=== PATIENT | female | born 1940 | race American Indian/Alaskan Native ===

== ENCOUNTER 2016-11-24 17:56 | Inpatient (IN) | payer MEDICARE ==
[2016-11-24] MEDS ORDERED: KETALAR ONE (18:00)
[2016-11-24] MEDS ORDERED: NACL 0.9% 1000 ML 1,000 ML IV ONE ×3 (18:00→22:03)
[2016-11-24] MEDS ORDERED: ZEMURON IV ONE (18:00)
[2016-11-24] MEDS ORDERED: NACL 0.9% 1000 ML 2,000 ML ONE (18:04)
[2016-11-24] MEDS ORDERED: LEVOPHED DRIP 4 MG/NS 250 ML 4 MG/250 ML BAG IV ONE (18:11)
[2016-11-24] MEDS ORDERED: SUBLIMAZE ONE (18:14)
[2016-11-24] MEDS ORDERED: VASELINE LIP THERAPY TP PRN (18:17)
[2016-11-24] MEDS ORDERED: ARTIFICIAL TEARS OPHTH OINT OU PRN (18:17)
[2016-11-24] MEDS: LEVOPHED DRIP 4 MG/NS 250 ML 4 MG/250 ML BAG IV SCH (18:20)
--- NOTE | 2016-11-24 18:24 | Emergency Department Report ---
ED CPR HPI - General Chief Complaint: Cardiac Arrest/CPR Stated Complaint: CARDIAC ARREST Time Seen by Provider: 11/24/16 18:13 Source: EMS - History of Present Illness Initial Comments: Pt is a 76 yr old female with a h/o multiple cancers who presents from the [place] for cardiac arrest. As per EMS she was seen last normal at 1725. Upon EMS arrival patient was asystolic, PEA, and then ROSC was achieved. Pt was given 2 rounds of epinephrine and a amparo tube was placed prior to hospital arrival. Upon arriving to the department patient had no neurological exam, vomit around her mouth, and then coded again at 1802 shortly upon arrival. Pt achieved ROSC with 2 more rounds of epinephrine, 1 Na Bicarb, and 1 calcium gluconate. - Related Data Home Medications Medication Instructions Recorded Confirmed Last Taken Albuterol Sulfate [Ventolin HFA] 2 puff IH Q6H PRN 11/18/16 11/24/16 Unknown Clotrimazole [Mycelex] 10 mg MM TID 11/18/16 11/24/16 Unknown Dicyclomine [Bentyl] 10 mg PO BID 11/18/16 11/24/16 Unknown Docusate Sodium [Colace CAP] 100 mg PO BID 11/18/16 11/24/16 Unknown Multivit-Min/Iron Fum/Folic AC 1 each PO DAILY 11/18/16 11/24/16 Unknown [Xhnfl-Nsauuua-Ehyhfhpt Tablet] Burton-3 Fatty Acids [Fish Oil] 500 mg PO DAILY 11/18/16 11/24/16 Unknown Phenol 1.4% [Chloraseptic] 1 spray MM PRN 11/18/16 11/24/16 Unknown Ranitidine HCl [Heartburn Relief] 150 mg PO BID 11/18/16 11/24/16 Unknown Simethicone [Bicarsim] 80 mg PO BID 11/18/16 11/24/16 Unknown amLODIPine [Norvasc] 5 mg PO DAILY 11/18/16 11/24/16 Unknown Azelastine HCl [Astepro] 2 sprays INNOSTRIL Q12H PRN 11/24/16 11/24/16 Unknown HYDROcodone/APAP 10-325 [[place] 1 tab PO Q6H PRN 11/24/16 11/24/16 Unknown 10-325 mg TAB] Oxymetazoline 0.05% [Afrin] 2 sprays INTRANASAL TID PRN 11/24/16 11/24/16 Unknown guaiFENesin DM [Robitussin Dm] 10 ml PO Q6H PRN 11/24/16 11/24/16 Unknown levETIRAcetam [Keppra TAB] 1,000 mg PO QHS 11/24/16 11/24/16 Unknown levETIRAcetam [Keppra TAB] 500 mg PO QDAY 11/24/16 11/24/16 Unknown Allergies Allergy/AdvReac Type Severity Reaction Status Date / Time acetaminophen Allergy Itching Unverified 01/24/14 15:41 aspirin Allergy Itching Unverified 01/24/14 15:41 atorvastatin Allergy Itching Unverified 01/24/14 15:41 dipyridamole Allergy Itching Unverified 01/24/14 15:41 gabapentin Allergy Itching Unverified 01/24/14 15:41 levalbuterol [Levalbuterol] Allergy Unknown Unverified 01/24/14 15:41 levofloxacin Allergy Itching Unverified 01/24/14 15:41 lovastatin Allergy Itching Unverified 01/24/14 15:41 naproxen Allergy Itching Unverified 01/24/14 15:41 propoxyphene Allergy Itching Unverified 01/24/14 15:41 Sulfa (Sulfonamide Allergy Itching Unverified 01/24/14 15:41 Antibiotics) ED Review of Systems ROS: Stated complaint: CARDIAC ARREST Other details as noted in HPI Comment: Unobtainable due to pts medical conditions ED Past Medical Hx - Past Medical History Previous Medical History?: Yes Hx of Cancer: Yes Hx COPD: Yes Additional medical history: Oral Candidiasis - Social History Smoking Status: Never Smoker - Medications Home Medications: Home Medications Medication Instructions Recorded Confirmed Last Taken Type Albuterol Sulfate [Ventolin HFA] 2 puff IH Q6H PRN 11/18/16 11/24/16 Unknown History Clotrimazole [Mycelex] 10 mg MM TID 11/18/16 11/24/16 Unknown History Dicyclomine [Bentyl] 10 mg PO BID 11/18/16 11/24/16 Unknown History Docusate Sodium [Colace CAP] 100 mg PO BID 11/18/16 11/24/16 Unknown History Multivit-Min/Iron Fum/Folic AC 1 each PO DAILY 11/18/16 11/24/16 Unknown History [Yrhhl-Gpsqitk-Adjfccmc Tablet] [place]-3 Fatty Acids [Fish Oil] 500 mg PO DAILY 11/18/16 11/24/16 Unknown History Phenol 1.4% [Chloraseptic] 1 spray MM PRN 11/18/16 11/24/16 Unknown History Ranitidine HCl [Heartburn Relief] 150 mg PO BID 11/18/16 11/24/16 Unknown History Simethicone [Bicarsim] 80 mg PO BID 11/18/16 11/24/16 Unknown History amLODIPine [Norvasc] 5 mg PO DAILY 11/18/16 11/24/16 Unknown History Azelastine HCl [Astepro] 2 sprays INNOSTRIL Q12H PRN 11/24/16 11/24/16 Unknown History HYDROcodone/APAP 10-325 [[place] 1 tab PO Q6H PRN 11/24/16 11/24/16 Unknown History 10-325 mg TAB] Oxymetazoline 0.05% [Afrin] 2 sprays INTRANASAL TID PRN 11/24/16 11/24/16 Unknown History guaiFENesin DM [Robitussin Dm] 10 ml PO Q6H PRN 11/24/16 11/24/16 Unknown History levETIRAcetam [Keppra TAB] 1,000 mg PO QHS 11/24/16 11/24/16 Unknown History levETIRAcetam [Keppra TAB] 500 mg PO QDAY 11/24/16 11/24/16 Unknown History ED Physical Exam - General Limitations: Altered Mental Status, Other (Cardiac arrest) General appearance: obtunded - Head Head exam: Present: atraumatic, normocephalic, normal inspection - Eye Eye exam: Present: other (Fixed and dilated, however likely surgical pupils). Absent: normal appearance, PERRL, EOMI Pupils: Absent: normal accommodation - ENT ENT exam: Present: mucous membranes moist, TM's normal bilaterally, other ( vomit in ororpharynx) - Neck Neck exam: Present: normal inspection - Respiratory Respiratory exam: Present: rhonchi, other (Intubated) - Cardiovascular Cardiovascular Exam: Present: other (cardiac arrest) - GI/Abdominal GI/Abdominal exam: Present: soft. Absent: distended - Extremities Exam Extremities exam: Present: other (mottled, cool). Absent: pedal edema, joint swelling - Neurological Exam Neurological exam: Present: other (Cardiac arrest, no neurological signs of life ) - Skin Skin exam: Present: dry, intact, pallor ED Course Vital Signs 11/24/16 11/24/16 11/24/16 17:54 17:55 18:00 Pulse Rate Respiratory Rate Blood Pressure 73/36 73/36 O2 Sat by Pulse 100 100 81 L Oximetry 11/24/16 11/24/16 11/24/16 18:06 18:10 18:15 Pulse Rate 119 H 94 H 106 H Respiratory 17 16 16 Rate Blood Pressure 125/93 156/68 84/42 O2 Sat by Pulse 100 100 100 Oximetry 11/24/16 11/24/16 11/24/16 18:30 18:45 19:00 Pulse Rate 112 H 111 H Respiratory 16 17 Rate Blood Pressure 89/37 91/42 91/42 O2 Sat by Pulse 92 96 Oximetry 11/24/16 11/24/16 11/24/16 19:18 19:30 19:45 Pulse Rate 121 H 119 H 114 H Respiratory 16 18 18 Rate Blood Pressure 84/42 95/34 94/33 O2 Sat by Pulse 96 95 93 Oximetry 11/24/16 11/24/16 11/24/16 19:48 19:52 20:00 Pulse Rate 114 H 116 H Respiratory 18 24 Rate Blood Pressure 94/33 96/41 O2 Sat by Pulse 93 95 92 Oximetry 11/24/16 11/24/16 11/24/16 20:16 20:30 20:45 Pulse Rate 118 H 117 H 115 H Respiratory 25 H 24 24 Rate Blood Pressure 99/48 111/51 106/45 O2 Sat by Pulse 99 99 98 Oximetry 11/24/16 11/24/16 11/24/16 21:00 21:16 21:30 Pulse Rate 120 H 121 H 123 H Respiratory 20 20 20 Rate Blood Pressure 87/53 89/38 75/36 O2 Sat by Pulse 99 99 99 Oximetry 11/24/16 11/24/16 11/24/16 21:45 22:00 22:15 Pulse Rate 123 H 120 H 117 H Respiratory 21 21 20 Rate Blood Pressure 77/41 85/49 90/51 O2 Sat by Pulse 98 100 100 Oximetry 11/24/16 11/24/16 11/24/16 22:30 22:45 23:00 Pulse Rate 117 H 126 H 126 H Respiratory 24 25 H 24 Rate Blood Pressure 90/51 95/50 95/59 O2 Sat by Pulse 100 100 100 Oximetry 11/24/16 11/24/16 11/24/16 23:15 23:23 23:30 Pulse Rate 127 H 118 H 120 H Respiratory 23 15 Rate Blood Pressure 102/55 102/55 97/48 O2 Sat by Pulse 100 99 99 Oximetry 11/24/16 11/25/16 11/25/16 23:45 00:00 00:15 Pulse Rate 119 H 120 H 120 H Respiratory 18 11 L 10 L Rate Blood Pressure 102/40 92/37 81/45 O2 Sat by Pulse 98 100 100 Oximetry 11/25/16 11/25/16 11/25/16 00:30 00:32 00:46 Pulse Rate 117 H 118 H 125 H Respiratory 10 L 10 L 10 L Rate Blood Pressure 102/40 89/46 118/81 O2 Sat by Pulse 100 100 100 Oximetry 11/25/16 11/25/16 11/25/16 01:00 01:16 01:30 Pulse Rate 127 H 129 H 124 H Respiratory 11 L 11 L 11 L Rate Blood Pressure 87/45 89/50 103/46 O2 Sat by Pulse 100 100 100 Oximetry 11/25/16 11/25/16 11/25/16 01:46 02:00 02:15 Pulse Rate 126 H 125 H 123 H Respiratory 10 L 11 L 11 L Rate Blood Pressure 111/42 111/42 103/46 O2 Sat by Pulse 100 100 100 Oximetry 11/25/16 11/25/16 11/25/16 02:30 02:46 03:00 Pulse Rate 123 H 112 H 112 H Respiratory 11 L 11 L 11 L Rate Blood Pressure 100/36 101/39 102/39 O2 Sat by Pulse 100 100 100 Oximetry 11/25/16 11/25/16 11/25/16 03:16 03:30 03:46 Pulse Rate 111 H 109 H 110 H Respiratory 12 15 12 Rate Blood Pressure 99/62 95/35 107/29 O2 Sat by Pulse 100 100 100 Oximetry 11/25/16 11/25/16 11/25/16 04:00 04:16 04:30 Pulse Rate 109 H 110 H 111 H Respiratory 13 13 12 Rate Blood Pressure 99/62 92/47 92/47 O2 Sat by Pulse 100 100 100 Oximetry 11/25/16 11/25/16 11/25/16 04:46 05:00 05:16 Pulse Rate 111 H 111 H 114 H Respiratory 12 14 14 Rate Blood Pressure 100/40 116/35 116/35 O2 Sat by Pulse 100 100 100 Oximetry 11/25/16 11/25/16 11/25/16 05:30 05:46 06:00 Pulse Rate 115 H 114 H 115 H Respiratory 14 13 14 Rate Blood Pressure 100/40 105/43 105/43 O2 Sat by Pulse 100 100 100 Oximetry 11/25/16 11/25/16 11/25/16 06:36 06:46 07:00 Pulse Rate 120 H 116 H 116 H Respiratory 16 14 14 Rate Blood Pressure 106/37 113/34 O2 Sat by Pulse 100 100 100 Oximetry 11/25/16 11/25/16 11/25/16 07:16 07:30 07:46 Pulse Rate 115 H 115 H 116 H Respiratory 14 16 15 Rate Blood Pressure 106/39 106/39 92/43 O2 Sat by Pulse 100 100 100 Oximetry 11/25/16 11/25/16 11/25/16 08:00 08:15 08:29 Pulse Rate 115 H 116 H 116 H Respiratory 15 15 Rate Blood Pressure 97/42 108/42 108/42 O2 Sat by Pulse 100 100 100 Oximetry 11/25/16 11/25/16 11/25/16 08:30 08:45 09:00 Pulse Rate 115 H 116 H 116 H Respiratory 15 16 16 Rate Blood Pressure 108/42 91/37 101/40 O2 Sat by Pulse 100 100 100 Oximetry 11/25/16 11/25/16 11/25/16 09:15 09:30 09:45 Pulse Rate 102 H 102 H 98 H Respiratory 16 18 19 Rate Blood Pressure 106/34 92/35 57/25 O2 Sat by Pulse 100 100 100 Oximetry 11/25/16 11/25/16 11/25/16 10:00 10:16 10:30 Pulse Rate 94 H 80 72 Respiratory 26 H 20 26 H Rate Blood Pressure 62/32 66/27 66/27 O2 Sat by Pulse 100 100 Oximetry 06/06/17 06/06/17 10:46 11:00 Pulse Rate 33 L Respiratory 24 23 Rate Blood Pressure 45/13 45/13 O2 Sat by Pulse Oximetry - Central Line Placement Right IJ Consent Obtained: emergent situation Time Out Performed: Yes Patient Placed on Monitor/Pulse Ox: Yes MD Prep: mask, gown, gloves Central Line Prep: Chlorhexidine scrub, sterile drapes applied Ultrasound Used for Placement: Yes Central Line Lumen Inserted: triple Bloods Obtained for Lab: No (labs already done) Central Line Position: good blood return, all ports aspirated, flus, sutured in place with 2-0 Dressing Applied: Tegaderm Patient Tolerated Procedure: well Complications: none ED Medical Decision Making - Lab Data Result diagrams: 11/24/16 19:39 11/24/16 19:39 - EKG Data -: EKG Interpreted by Me - EKG Data 11/24/16 18:24 Sinus Tachy at 104 bpm, QTc: 486ms, normal axis, no LVH, incomplete LBBB, (-) sgarbossa, TWI in the inferior-lateral leads, no STEMI - Radiology Data Radiology results: report reviewed, image reviewed CXR: ETT in satsifactory position as visualized by me KUB: PEG tube in stomach as visualized by me and reviewed report CXR s/p line placement: TLC in satisfactory position as visualized by me, ETT remains in satisfactory position Critical Care Time: Yes (Cardiac arrest) Critical care time in (mins) excluding proc time.: 35 Critical care attestation.: If time is entered above; I have spent that time in minutes in the direct care of this critically ill patient, excluding procedure time. Pt arrested shortly after arrival at 1802 Pt given epi x 2 Na bicarb x 1 Ca gluconate x 1 intubated with glide x 1 attempt 7.5 ETT 22cm at the lip Fentanyl infusion for sedation and pain control, propofol was held due to low BP and low MAP Pt started on levophed for SBP 90 and to maintain MAP at 65 1L NS IVF given FSG within normal limits Pt had no neurological signs of life ED Disposition Clinical Impression: Cardiac arrest Disposition: OP ADMIT IP TO THIS HOSP Is pt being admited?: Yes Condition: Critical
[2016-11-24] MEDS ORDERED: CALCIUM CHLORIDE IV ONE (18:50)
[2016-11-24] MEDS ORDERED: ADRENALIN ONE (18:50)
[2016-11-24] MEDS ORDERED: SODIUM BICARBONATE IV ONE (18:50)
--- NOTE | 2016-11-24 18:51 | Admit Criteria Form ---
Admission Criteria Documentation: INTENSIVE CARE UNIT ADMISSION Intensive Care Admission Guidelines ( Place 'X' for any and all applicable criteria): Admission to ICU may be indicated when need is demonstrated by ANY ONE of the following (1)(2)(3)(4)(5)(6)(7)(8)(9) : [X ]I. Vital sign abnormalities, including ANY ONE of the following: [X ]a) Systolic arterial pressure less than 90 mm Hg, or 20 mm Hg below the patient's usual pressure [ ]b) Diastolic arterial pressure greater than 120 mm Hg [ ]c) Mean arterial pressure less than 70 mm Hg [A] [ ]d) Pulse less than 40 or greater than 140 beats per minute (in adult) [ ]e) Respiratory rate greater than 35 or less than 8 breaths per minute [ ]II. Laboratory findings (new), including ANY ONE of the following (10): [ ]a) Saturation of arterial oxygen less than 88% or partial pressure of oxygen less than 60 mm Hg (8.0 kPa) despite oxygen supplementation [ ]b) Rising partial pressure of carbon dioxide with respiratory acidosis [ ]c) pH less than 7.2 or greater than 7.65 [ ]d) Serum glucose greater than 800 mg/dL (44.4 mmol/L) [ ]e) Serum sodium less than 110 mEq/L (mmol/L) or greater than 160 mEq/L (mmol/L) [ ]f) Serum potassium less than 2 mEq/L (mmol/L) or greater than 7 mEq /L (mmol/L) [ ]g) Serum calcium greater than 15 mg/dL (3.75 mmol/L) [ ]h) Serum phosphorus less than 1 mg/dL (0.32 mmol/L) [ ]i) Toxic drug level or poisoning causing or likely to cause neurologic or Hemodynamic instability [ ]j) Less severe laboratory abnormalities contributing to ANY ONE of the following: [ ]i) Seizure [ ]ii) Altered mental status [ ]iii) Muscle weakness [ ]iv) Arrhythmias [ ]v) Hemodynamic instability [ ]vi) Other significant clinical manifestations [ ]III. Electrocardiogram (or cardiac monitoring) findings, including ANY ONE of the following: [ ]a) Inherently unstable or life-threatening arrhythmia (eg, sustained ventricular tachycardia, ventricular fibrillation, asystole) [ ]b) Arrhythmia causing severe hypotension (eg, bradycardia, tachycardia) [ ]c) Complete heart block causing severe hypotension [ ]d) Other findings indicative of a need for intensive care (eg , SC) [X ]IV.Physical findings, including ANY ONE of the following: [ ]a) Threatened airway [ ]b) Sudden altered mental status [ ]c) Repeated or prolonged seizures [ ]d) Coma [ ]e) New-onset anuria (urine output <0.1 mL/kg/hr over 4 h) [ ]f) Cyanosis (new) [ ]g) Cardiac tamponade [X]h) Status post respiratory or cardiac arrest [ ]i) Severe jones (eg, partial thickness jones over more than 10% of body surface, third-degree jones) [ ]j) Findings consistent with abdominal emergency (eg, peritoneal signs) [ ]V.Imaging findings, such as dissecting aneurysm or ruptured viscus [ ].Specific intervention or monitoring needed, as indicated by ANY ONE of the following: [ ]a) New need for assisted ventilation, invasive or noninvasive(11) [ ]b) New need for intubation (eg, to protect airway) [ ]c) New tracheostomy (less than 48 hours old) [ ]d) Hourly vital signs or neurologic checks [ ]e) Pulmonary artery line monitoring needed [ ]f) Continuous arterial line monitoring needed [ ]g) Continuous IV vasoactive drugs [ ]h) Continuous IV antiarrhythmics [ ]i) Large volume IV fluid resuscitation (eg, greater than 6 L per day ) [ ]j) Large or rapid transfusion needs (eg, more than 6 units within 24 hours) [ ]k) High-risk IV treatment, such as bolus IV medicatns or mannitol infusion [ ]l) Acute cardiac pacing [ ]m) Intra-aortic balloon pump [ ]n) Ventricular assist device [ ]o) Cardioversion [ ]p) Pericardiocentesis [ ]q) Hemodialysis in unstable patient [ ]r) Continuous renal replacement therapy (eg, continuous veno-venous hemofiltration) [ ]s) Peritoneal dialysis initiation [ ]t) Emergency bronchoscopic therapy (eg, for hemoptysis) [ ]u) Emergency endoscopic therapy for bleeding [ ]v) Balloon tamponade for variceal bleeding [ ]w) Intracranial pressure monitoring or tissue oxygen monitoring [ ]x) Ventriculostomy monitoring [ ]y) Treatment of ongoing seizures [ ]z) Induced hypothermia or coma [ ]aa) Ongoing frequent testing and treatment for acute conditions, including ANY ONE of the following: [ ]i) Correction of severe metabolic acidosis/ alkalosis [ ]ii). Severe fluid overload [ ]iii) Cerebral edema [ ]iv) Monitoring or suctioning for respiratory insufficiency or acidosis [ ]v) Monitoring for active bleeding [ ]bb) Rapid desensitization for high-risk hypersensitivity reaction to required medication (eg, penicillin)(12) [ ]cc) Other need for treatment or monitoring not available outside the ICU [ ]VII.Cardiology diagnoses or procedures, including ANY ONE of the following (13)(14)(15)(16)(17): [ ]a) Chest pain with ANY ONE of the following: [ ]i) Hemodynamic instability [ ]ii) Suspicion of diagnoses needing ICU care (eg, aortic dissection) [ ]iii) New unstable or symptomatic arrhythmia or ECG finding (eg, ventricular tachycardia, ventricular fibrillation, advanced heart block) [ ]iv) Syncope or near-syncope [ ]v) SBP less than 100 mm Hg [ ]vi) Pulmonary edema thought to be due to ischemia [ ]vii) New or worsening mitral regurgitation murmur, S3 , or rales [ ]b) Acute SC with complications as indicated by ANY ONE of the following: [ ]i) Persistent chest pain [ ]ii) Hemodynamic instability [ ]iii) New unstable or symptomatic arrhythmia or ECG finding (eg, ventricular tachycardia, ventricular fibrillation, advanced heart block) [ ]iv) Syncope or near-syncope [ ]v) Pulmonary edema thought to be due to ischemia [ ]vi) New or worsening mitral regurgitation murmur, S3 , or rales [ ]vii) New-onset bundle branch block [ ]viii) Hemorrhagic complication (eg, intracranial or access site bleed following thrombolysis) [ ]c) Cardiac arrhythmia or conduction defect with Hemodynamic instability [ ]d) Complication of cardiac ablation, including ANY ONE of the following(18): [ ]i) Pericardial tamponade [ ]ii) Hemodynamic instability [ ]iii) Thromboembolic stroke [ ]iv) Aortic valve injury [ ]v) Vascular injuries [ ]vi) Esophageal perforation [ ]vii) Severe arrhythmia [ ]viii) Air embolism [ ]ix) Other severe complication [ ]e) Cardiogenic shock [ ]f) Hypertensive emergency, with need for ANY ONE of the following(19): [ ]i) IV antihypertensive therapy [ ]ii) Invasive hemodynamic monitoring (eg, arterial line) [ ]g) Pericardial tamponade [ ]h) Severe heart failure, with ANY ONE of the following(15): [ ]i) Respiratory failure [ ]ii) Cardiogenic shock [ ]iii) Severe arrhythmias [ ]iv) Evidence of cardiac ischemia [ ]i Myocarditis, with ANY ONE of the following [ ]i) Hemodynamic instability [ ]ii) Respiratory failure [ ]iii) Severe arrhythmias [ ]iv) Need for cardiac assist device (eg, left ventricular assist device or extracorporeal membrane oxygenator) [ ]j) Status post cardiac arrest(20) [ ]VIII. Cardiovascular Surgery diagnoses or procedures, including ANY ONE of the following.(21)(22): [ ]a) Acute aortic dissection [ ]b) Aortic surgery for ANY ONE of the following: [ ]i) Thoracic aneurysm [ ]ii) Abdominal aneurysm with ANY ONE of the following(23): [ ]1) Emergency repair [ ]2) Severe cardiopulmonary disease [ ]3) Dialysis-dependent renal failure [ ]4) Need for IV blood pressure control [ ]5) Need for ongoing ventilatory support [ ]6) Perioperative complications, including ANY ONE of the following: [ ]A. Sustained Hemodynamic instability [ ]B. Cardiac ischemia or arrhythmia [ ]C. Hypothermia (less than 35 degrees C (95 degrees F)) [ ]D. Blood transfusion greater than 3 L [ ]iii) Aortic coarctation operative excision or repair [ ]iv) Aortofemoral or aortoiliac bypass with ANY ONE of the following: [ ]1) Continued intubation [ ]2) Hemodynamic instability [ ]3) Need for IV blood pressure control [ ]4) Severe cardiopulmonary disease [ ]c) Cardiac surgery [ ]d) Carotid endarterectomy or stent placement with ANY ONE of the following: [ ]i) Blood pressure <100/60 mm Hg or >160/90 mm Hg despite 4 h of postanesthetic management [ ]ii) New or progressive neurologic defect [ ]iii) Chest pain [ ]iv) Continued intubation [ ]v) Heart failure [ ]vi) Airway compromise by hematoma or vocal cord paralysis [ ]vi) Need for IV blood pressure control [ ]e) Heart transplant [ ]f) Infrainguinal peripheral vascular surgery with ANY ONE of the following: [ ]i) Hemodynamic instability [ ]ii) Acute complications such as persistent chest pain or respiratory distress [ ]iii) Requirement for IV antiarrhythmic or vasoactive agent [ ]iv) Requirement for pulmonary artery catheter [ ]v) Severe hypertension despite 6 hours of recovery room management [ ]g) Complications of any surgery requiring ICU intervention as indicated by ANY ONE of the following(24): [ ]i) Hemodynamic instability [ ]ii) Myocardial infarction with complications (eg, severe arrhythmia, hypotension) [ ]iii) Excessive bleeding or severe coagulopathy [ ]iv) Respiratory failure [ ]v) Renal failure [ ]vi) Airway instability or obstruction [ ]vii) Neurologic deterioration [ ]viii) Infection with likelihood of sepsis syndrome or significant fluid shifts [ ]IX.Endocrinology diagnoses or procedures, including ANY ONE of the following(25)(26): [ ]a) Adrenal crisis with Hemodynamic instability(27) [ ]b) Pheochromocytoma with ANY ONE of the following(28): [ ]i) Hypertensive crisis [ ]ii) Postoperative Hemodynamic instability [ ]iii) Need for IV vasoactive therapy [ ]iv) Need for invasive arterial or central venous pressure monitoring [ ]v) Organ ischemia [ ]c) Diabetic hyperosmolar state with obtundation or coma [ ]d) Diabetic ketoacidosis with ANY ONE of the following: [ ]i) Serum pH less than 7.10 or bicarbonate level less than 10 mEq/L (mmol/L) [ ]ii) Rapidly changing electrolytes [ ]iii) Hypotension [ ]iv) Requirement for large-volume fluid resuscitation [ ]v) Respiratory insufficiency [ ]vi) Life-threatening cardiac dysrhythmias [ ]vii) Obtundation [ ]viii) Severe precipitating condition such as sepsis, stroke, or acute SC [ ]e) Severe hypoglycemia requiring continuous glucose infusion with frequent adjustment or glucagon infusion [ ]f) Hyperthyroidism associated with thyroid storm (also known as thyrotoxic crisis)(29) [ ]g) Myxedema with life-threatening neurologic, cardiovascular, electrolyte, or renal dysfunction(29) [ ]h) Diabetes insipidus that cannot be controlled with routine medication (30) [ ]X. Gastroenterology diagnoses or procedures, including ANY ONE of the following: [ ]a) Esophageal perforation(31) [ ]b) Severe caustic esophageal injury(31) [ ]c) Liver disease complications with ANY ONE of the following(32): [ ]i) Severe hepatic encephalopathy (eg, stage 3 (somnolent) or higher) [ ]ii) Type 1 hepatorenal syndrome [ ]iii) Other cirrhosis-associated causes of acute renal failure ( eg, severe hypovolemia, acute tubular necrosis, abdominal compartment syndrome) [ ]iv) Hemodynamic instability [ ]v) Respiratory insufficiency due to severe ascites [ ]vi) Sepsis due to spontaneous bacterial peritonitis [ ]d) Fulminant hepatic failure when aggressive intervention or transplant is anticipated (32) [ ]e) Gastrointestinal hemorrhage (upper or lower) with ANY ONE of the following(33)(34): [ ]i) Active ongoing bleeding [ ]ii) Transfusion requirement greater than 2 units of packed red cells [ ]iii) Bleeding ulcer or nonbleeding visible vessel seen on endoscopy [ ]iv) Bleeding ulcer, visible blood vessel, bleeding (or recently bleeding) esophageal varices seen on endoscopy [ ]v) Hypotension [ ]vi) Syncope [ ]vii) Coagulopathy [ ]viii) Hepatic cirrhosis [ ]ix) Abnormal mental status [ ]x) Unstable comorbid condition or end organ dysfunction [ ]xi) Ischemia due to poor perfusion [ ]xii) Need for hemodynamic monitoring (eg, for patients with heart failure or valvular disease) [ ]f) Severe pancreatitis indicated by ANY ONE of the following (35)(36): [ ]i) Requirement for aggressive fluid resuscitation [ ]ii) Life-threatening electrolyte abnormality [ ]iii) SBP less than 90 mm Hg [ ]iv) Persistent tachycardia greater than 120 beats per minute [ ]v) Patients at high risk of rapid deterioration, including ANY ONE of the following: [ ]1) Calculated [place] II score greater than 8 [ ]2) Age older than 55 years [ ]3) BMI greater than 30 [ ]4) Greater than 30% pancreatic necrosis on CT scan [ ]5) Admission hematocrit greater than 47% (0.47) [ ]vi) Organ failure as indicated by ANY ONE of the following: [ ]1) Serum creatinine greater than 1.9 mg/dL (168 micromoles/L) [ ]2) Requirement for mechanical ventilation [ ]3) Urine output less than 50 mL/hour [ ]4) Arterial partial pressure of oxygen less than 60 mm Hg (8.0 kPa) despite supplemental oxygen [ ]5) PiO2/FiO2 ratio less than 300 [ ]vii) Expanding pseudocyst [ ]viii) Infected pancreas [ ]ix) Pleural effusion [ ]x) Encephalopathy [ ]xi) Severe comorbidities [ ]XI. General Surgery diagnoses or procedures, including ANY ONE of the following (9)(24)(37): [ ]a) Acute abdominal catastrophe (eg, ischemic bowel, perforated viscus, abdominal compartment syndrome) [ ]b) Complications of any surgery requiring ICU intervention as indicated by ANY ONE of the following: [ ]i) Hemodynamic instability [ ]ii) SC with complications (eg, severe arrhythmia, hypotension) [ ]iii) Excessive bleeding or severe coagulopathy [ ]iv) Respiratory failure [ ]v) Renal failure [ ]vi) Airway instability or obstruction [ ]vii) Neurologic deterioration [ ]viii) Infection with likelihood of sepsis syndrome or significant fluid shifts [ ]c) Multiple trauma with complicating features as indicated by ANY ONE of the following(38): [ ]i) Impending acute respiratory failure due to lung contusion, unstable chest wall, aspiration, or hemorrhage [ ]ii) Facial or neck injury threatening airway patency [ ]iii) Cardiac contusion [ ]iv) Pericardial effusion [ ]v) Bronchial tear [ ]vi) Hemodynamic instability [ ]vii) Rhabdomyolisis requiring large volume IV fluid resuscitation [ ]viii)Other significant complicating feature [ ]d) Organ transplant(39)(40) [ ]e) Esophagectomy(31) [ ]f) Whipple procedure [ ]g) Preoperative or postoperative patients requiring ICU intervention, such as hemodynamic optimization, pulmonary artery monitoring, mechanical ventilation, or extensive nursing care [ ]h) Obesity surgery patients with ANY ONE of the following(41): [ ]i) ICU management needs for comorbid conditions, such as sleep apnea or airway management needs [ ]ii) Failed postoperative extubation [ ]iii) Intraoperative complications [ ]XII. Nephrology diagnoses or procedures, including acute, or acute on chronic renal insufficiency with ANY ONE of the following(44)(45): [ ]a) Life-threatening electrolyte or acid-base disorder [ ]b) Acute pulmonary edema [ ]c) Hypotension or significant volume depletion [ ]d) Hypertensive emergency [ ]e) Underlying critical illness contributing to renal failure (eg, septic shock, hepatorenal syndrome) [ ]f) Need for continuous renal replacement therapy [ ]XIII. Neurology diagnoses or procedures, including ANY ONE of the following (46)(47) [B] : [ ]a) Intracranial hypertension requiring ANY ONE of the following(49 ): [ ]i) Induced barbiturate coma [ ]ii) Pharmacologic paralysis or deep sedation and mechanical ventilation [ ]iii) Intracranial pressure or cerebral perfusion pressure monitoring [ ]iv) IV mannitol or hypertonic saline [ ]v) Frequent serum osmolality measurements [ ]b) Seizures with ANY ONE of the following(50): [ ]i) Status epilepticus [ ]ii) Airway compromise requiring or likely to require mechanical ventilation [ ]iii) Severe electrolyte abnormalities causing seizures [ ]c) Progressive acute neurologic dysfunction requiring or likely to require ANY ONE of the following: [ ]i) Mechanical ventilation [ ]ii) Intracranial pressure or cerebral perfusion pressure monitoring [ ]d) Meningitis with obtundation or respiratory insufficiency [C])(51 ) [ ]e) Stroke with ANY ONE of the following(52)(53): [ ]i) Need for observation after thrombolysis [ ]ii) Altered mental status [ ]iii) Need for mechanical ventilation [ ]iv) Elevated intracranial pressure [ ]v) Hypertensive emergency [ ]vi) High risk of progressive infarction or deterioration based on CT scan or MRI [ ]vii) Hemorrhage [ ]f) Acute coma [ ]g) Acute spontaneous intracranial hemorrhage(53)(54) [ ]h) Drug ingestion with ANY ONE of the following(56)(57): [ ]i) Hemodynamic instability [ ]ii) Respiratory depression (partial pressure of carbon dioxide >45 mm Hg (6.0 kPa), new) [ ]iii) Patient requires or is likely to require mechanical ventilation. [ ]iv) Arrhythmias [ ]v) Seizures [ ]vi) Altered mental status (Redmond coma scale score less than 12, new) [ ]vii) Significant risk for acute deterioration (eg, toxic level of hypotension or arrhythmia-producing drug) [ ]viii) Drug-induced hypothermia or hyperthermia [ ]ix) Increasing metabolic acidosis [ ]x) Severe hypoglycemia requiring glucose infusion with frequent adjustment or glucagon administration [ ]xi) Ongoing antidote administration (eg, continuous naloxone infusion, organophosphate toxicity treatment) [ ]xii) Emergency intervention need (eg, dialysis, hemoperfusion, restraints) [ ]i) Brain with preparation for organ donation [ ]j) Traumatic brain injury with ANY ONE of the following(55): [ ]i) Altered mental status (eg, new onset Mikey coma scale score less than 10) [ ]ii) Cerebral edema [ ]iii) Cerebral hemorrhage [ ]iv) Increased intracranial pressure [ ]XIV. Neurosurgery diagnoses or procedures, including ANY ONE of the following(49)(58)(59): [ ]a) Emergency craniotomy for tumor, hematoma, or trauma [ ]b) Elective craniotomy for posterior fossa tumor [ ]c) Elective craniotomy (supratentorial) for tumor with ANY ONE of the following: [ ]i) Postoperative neurologic deficit or impaired consciousness 6 hours after completion of procedure [ ]ii) SBP less than 110 mm Hg or greater than 180 mm Hg despite therapy [ ]iii) Extensive operative blood loss [ ]iv) High anesthesia risk (eg, [place] [employer] score greater than 3 [ ]d) Craniotomy for aneurysm with ANY ONE of the following: [ ]i) Postoperative neurologic deficit or impaired consciousness 6 hours after completion of procedure [ ]ii) Preoperative Lim-Mills grade 3 or higher [ ]iii) SBP less than 110 mm Hg or greater than 180 mm Hg despite therapy [ ]iv) Intracranial pressure monitoring [ ]e) Acute spinal cord injury [ ]f) Subarachnoid hemorrhage [ ]g) Traumatic brain injury with ANY ONE of the following: [ ]i) Acute mental status change (Mikey coma scale score less than 10) [ ]ii) CT scan showing cerebral edema or hemorrhage [ ]iii) Intracranial pressure monitoring [ ]h) Complications of any surgery requiring ICU intervention as indicated by ANY ONE of the following(60): [ ]i) Hemodynamic instability [ ]ii) SC with complications (eg, severe arrhythmia, hypotension) [ ]iii) Excessive bleeding or severe coagulopathy [ ]iv) Respiratory failure [ ] v) Renal failure [ ]vi) Airway instability or obstruction [ ]vii) Neurologic deterioration [ ]viii) Infection with likelihood of sepsis syndrome or significant fluid shifts [ ]i) Preoperative or postoperative patients requiring ICU intervention, such as hemodynamic optimization, pulmonary artery monitoring, mechanical ventilation, or extensive nursing care [ ]XV.Obstetrics and Gynecology diagnoses or procedures, including ANY ONE of the ffg. (61)(62)(63): [ ]a) Severe peripartum condition as indicated by ANY ONE of the following: [ ]i) Eclampsia [ ]ii) Hypertensive emergency [ ]iii) HELLP syndrome (hemolysis, elevated liver enzymes, and low platelet count) [ ]iv) Pulmonary edema [ ]v) Respiratory failure [ ]vi) Pulmonary embolism [ ]vii) Anaphylactoid syndrome of (amniotic fluid embolus) [ ]viii) Ovarian hyperstimulation syndrome [D] [ ]ix) Acute fatty liver of (hepatic failure) [ ]x) Complications such as placental abruption or severe hemorrhage [ ]xi) Sepsis (eg, puerperal sepsis, chorioamnionitis, septic ) [ ]xii) cardiomyopathy with severe congestive heart failure (eg, respiratory failure, cardiogenic shock) [ ]b) Ruptured ectopic [ ]c) Complications of any surgery requiring ICU intervention as indicated by ANY ONE of the following: [ ]i) Hemodynamic instability [ ]ii) SC with complications (eg, severe arrhythmia, hypotension) [ ]iii) Excessive bleeding or severe coagulopathy [ ]iv) Respiratory failure [ ]v) Renal failure [ ]vi) Airway instability or obstruction [ ]vii) Neurologic deterioration [ ]viii) Infection with likelihood of sepsis syndrome or significant fluid shifts [ ]d) Preoperative or postoperative patients requiring ICU intervention , such as hemodynamic optimization, pulmonary artery monitoring, mechanical ventilation, or extensive nursing care [ ]XVI.Ophthalmology diagnoses or procedures, including ANY ONE of the following (64): [ ]a) Complications of any surgery requiring ICU intervention, such as ANY ONE of the following: [ ]i) Hemodynamic instability [ ]ii) SC with complications (eg, severe arrhythmia, hypotension) [ ]iii) Excessive bleeding or severe coagulopathy [ ]iv) Respiratory failure [ ]v) Renal failure [ ]vi) Airway instability or obstruction [ ]vii) Neurologic deterioration [ ]viii) Infection with likelihood of sepsis syndrome or significant fluid shifts [ ]b) Preoperative or postoperative patients requiring ICU intervention , such as hemodynamic optimization, pulmonary artery monitoring, mechanical ventilation, or extensive nursing care [ ]XVII.Orthopedics diagnoses or procedures, including ANY ONE of the following [phone]): [ ]a) Complications of any surgery requiring ICU intervention as indicated by ANY ONE of the following: [ ]i) Hemodynamic instability [ ]ii) SC with complications (eg, severe arrhythmia, hypotension) [ ]iii) Excessive bleeding or severe coagulopathy [ ]iv) Respiratory failure [ ]v) Renal failure [ ]vi) Airway instability or obstruction [ ] vii) Neurologic deterioration [ ]viii) Infection with likelihood of sepsis syndrome or significant fluid shifts [ ]b) Multiple trauma with complicating features as indicated by ANY ONE of the following(38): [ ]i) Impending acute respiratory failure due to lung contusion, unstable chest wall, pneumothorax, aspiration, or hemorrhage [ ]ii) Facial or neck injury threatening airway patency [ ]iii) Cardiac contusion [ ]iv) Rhabdomyolysis requiring large volume IV fluid resuscitation [ ]v) Pericardial effusion [ ]vi) Bronchial tear [ ]vii) Hemodynamic instability [ ]viii) Other significant complicating feature [ ]c) Threatened compartment syndrome [ ]d) Severe jones with ANY ONE of the following(68)(69)(70): [ ]i) Hypotension or requirement for aggressive fluid resuscitation [ ]ii) Respiratory insufficiency with requirement for high- flow oxygen or mechanical ventilation [ ]iii) Carbon monoxide poisoning [ ]iv) Life-threatening cardiac, renal, pulmonary, or neurologic dysfunction [ ]v) High-voltage (eg, 1000 volts or more) electrical burn [ ]vi) Requirement for frequent or intensive debridement and dressing changes; examples include: [ ]1) Partial thickness jones greater than 10% of body surface [ ]2) Jones on face, hands, feet, genitalia, perineum , or major joints [ ]3) Third-degree jones [ ]4) Any burn greater than 15% of body surface area [ ]vii) Inhalation lung injury [ ]viii) Concomitant trauma or other medical condition requiring ICU care [ ]e) Preoperative or postoperative patients requiring ICU intervention , such as hemodynamic optimization, pulmonary artery monitoring, mechanical ventilation, or extensive nursing care [ ]XVIII.Otolaryngology diagnoses or procedures, including ANY ONE of the following (71)(72): [ ]a) Complications of any surgery requiring ICU intervention as indicated by ANY ONE of the following: [ ]i) Hemodynamic instability [ ]ii) SC with complications (eg, severe arrhythmia, hypotension) [ ]iii) Excessive bleeding or severe coagulopathy [ ]iv) Respiratory failure [ ]v) Renal failure [ ]vi) Airway instability or obstruction [ ]vii) Neurologic deterioration [ ]viii) Infection with likelihood of sepsis syndrome or significant fluid shifts [ ]b) Airway or hemodynamic compromise that persists after 3 hours of observation in postanesthesia care unit following nasal, palate (eg, uvulopalatopharyngoplasty or palatoplasty), or tongue surgery for sleep apnea [ ]c) Preoperative or postoperative patient requiring ICU intervention, such as hemodynamic optimization, pulmonary artery monitoring, mechanical ventilation, or extensive nursing care [ ]d) Symptomatic upper airway compromise (eg, laryngeal edema, mass) [ ]e) Other airway-compromising procedure (eg, posterior nasal packing) [ ]XIX.Thoracic Surgery and Pulmonary Disease Diagnosis or procedures, including ANY ONE of the following(6): [ ]a) Asthma with ANY ONE of the following(73)(74): [ ]i) Impending or actual respiratory arrest [ ]ii) Need for mechanical ventilation [ ]iii) Peak expiratory flow rate less than 30% of predicted or personal best [ ]iv) Peak expiratory flow rate or FEV1 less than 40% predicted after 1 hour of initial treatment [ ]v) Acidosis [ ]vi) Persistent or worsening hypoxia after initial treatment [ ]vii) Hypercapnia (eg, partial pressure of carbon dioxide greater than 43 mm Hg (5.7 kPa)) [ ]viii) Severe drowsiness, confusion, or coma [ ]ix) Requiring continuous inhaled bronchodilator [ ]b) COPD with ANY ONE of the following(75): [ ]i) Need for assisted ventilation [ ]ii) Hemodynamic instability [ ]iii) Severe dyspnea unresponsive to initial treatment [ ]iv) Change in level of consciousness [ ]v) Persistent findings despite oxygen and outpatient management, including ANY ONE of the following: [ ]1) Partial pressure of oxygen less than 40 mm Hg ( 5.3 kPa) [ ]2) Partial pressure of carbon dioxide greater than 60 mm Hg (8.0 kPa) [ ]3) pH less than 7.25 [ ]4) Worsening hypoxemia or acidosis [ ]c) Cor pulmonale with ANY ONE of the following(75)(76)(77): [ ]i) Hemodynamic instability [ ]ii) Need for IV inotropic or vasoactive agent [ ]iii) Need for invasive hemodynamic monitoring (eg, central venous, pulmonary artery, or arterial catheter) [ ]iv) Hypoxemia with partial pressure of oxygen less than 40 mm Hg (5.3 kPa) [ ]v) Worsening hypoxemia or acidosis despite oxygen therapy [ ]vi) Need for assisted ventilation [ ]vii) Need for right ventricular assist device [ ]viii) Unstable atrial tachyarrhythmia [ ]ix) Need for inhaled nitric oxide [ ]d) Aspiration pneumonia with ANY ONE of the following(78): [ ]i) Acute respiratory distress syndrome (PaO2/FiO2 ratio of 300 or less) [ ]ii) Impending or actual respiratory arrest [ ]iii) Need for invasive or noninvasive mechanical ventilation [ ]e) Pneumocystis jiroveci pneumonia with ANY ONE of the following(79): [ ]i) Impending or actual respiratory arrest [ ]ii) Hypoxia (eg, PO260 mmGh (8.0 kPa) or less despite oxygen therapy) [ ]iii) Need for invasive or noninvasive mechanical ventilation [ ]f) Pneumonia with ANY ONE of the following(80)(81)(82): [ ]i) Need for invasive or noninvasive assisted ventilation [ ]ii) Hemodynamic instability [ ]iii) Severity factors as indicated by 3 or MORE of the following: [ ]1) Respiratory rate 30 breaths per minute or greater [ ]2) PaO2/FiO2 ratio of 250 or less [ ]3) Multilobed infiltrates [ ]4) Altered mental status [ ]5) BUN 20 mg/dL (7.1 mmol/L) or greater [ ]6) WBC count less than 4000/mm3 (4 x109/L) [ ]7) Platelet count <100,000/mm3 (100 x109/L) [ ]8) Temperature less than 36 degrees C (96.8 degrees F ) [ ]9) Hypotension requiring aggressive fluid resuscitation [ ]g) Pulmonary hypertension requiring initiation of parenteral pulmonary vasodilator or trial of inhaled nitric oxide (eg, need for right heart catheterization)(76) [ ]h) Impending respiratory failure as indicated by ANY ONE of the following: [ ]i) Respiratory rate greater than 30 or partial pressure of oxygen less than 60 mm Hg (8.0 kPa) on 50% oxygen or more [ ]ii) Partial pressure of carbon dioxide greater than 45 mm Hg (6.0 kPa) with pH less than 7.35 [ ]i) Respiratory failure with ANY ONE of the following (47): [ ]i) Need for invasive or noninvasive mechanical ventilation [ ]ii) High likelihood of requiring mechanical ventilation within 24 hours [ ]iii) Observation in the first several hours immediately after extubation from mechanical ventilation [ ]iv) Need for close observation and aggressive therapy, such as suctioning, chest physiotherapy, or inhalation treatments at intervals less than 1 hour [ ]v) Pharmacologic ventilatory paralysis [ ]j) Venous thromboembolism with need for systemic or catheter- directed thrombolysis (eg, for limb-threatening thrombosis, phlegmasia cerulea dolens) (83) [ ]k) Pulmonary embolus with ANY ONE of the following(83): [ ]i) Hypotension [ ]ii) Severe hypoxia [ ]iii) Dangerous arrhythmia [ ]iv) Bleeding [ ]v) Need for systemic or catheter-directed thrombolysis [ ]l) Lobectomy or other major thoracic surgery [ ]m) Lung transplant [ ]n) Symptomatic upper airway obstruction (eg, laryngeal edema, mass) [ ]o) Massive hemoptysis [ ]p) Infection or thrombosis of an intravenous device with ANY ONE of the following(6)(84): [ ]i) Hemodynamic instability [ ]ii) Requirement for frequent hemodynamic measurements [ ]iii) Shock [ ]iv) End organ dysfunction [ ] v) Acute renal failure due to missed dialysis [ ]vi) Unstable acute complication (eg, pericardial tamponade , tension pneumothorax) [ ]q) Traumatic rib fracture or fractures with ANY ONE of the following(85): [ ]i) Injury severity score of 19 or greater [ ]ii) Respiratory insufficiency [ ]iii) Flail chest [ ]iv) Sternum fracture [ ]v) Vascular injury (eg, heart or great vessels) [ ]r) Pleural effusion with ANY ONE of the following(86): [ ]i) Respiratory insufficiency [ ]ii) Hemothorax with active ongoing bleeding [ ]iii) Hemodynamic instability [ ]iv) Unstable comorbid condition (eg, sepsis or heart failure [ ]XX. Urology diagnoses or procedures, including ANY ONE of the following ( 87)(88): [ ]a) Renal transplant [ ]b) Complications of any surgery requiring ICU intervention as indicated by ANY ONE of the following: [ ]i) Hemodynamic instability [ ]ii) SC with complications (eg, severe arrhythmia, hypotension) [ ]iii) Excessive bleeding or severe coagulopathy [ ]iv) Respiratory failure [ ]v) Renal failure [ ]vi) Airway instability or obstruction [ ]vii) Neurologic deterioration [ ]viii) Infection with likelihood of sepsis syndrome or significant fluid shifts [ ]c) Preoperative or postoperative patients requiring ICU intervention , such as hemodynamic optimization, pulmonary artery monitoring, mechanical ventilation , or extensive nursing care [ ]XXI.Infectious Disease diagnoses or procedures, with ANY ONE of the following (6)(43): [ ]a) Hemodynamic instability [ ]b) Shock [ ]c) Requirement for frequent hemodynamic measurements (eg, arterial catheter, pulmonary artery catheter) [ ]d) Sepsis or suspected sepsis with end organ dysfunction (eg, acute kidney injury, acute respiratory distress syndrome) [ ]e) Necrotizing soft tissue infection [ ] XXII.Hematology - Oncology diagnoses or procedures, including chemotherapy administration with ANY ONE of the following(42): [ ]a) Hemodynamic instability [ ]b) Tumor lysis syndrome with ANY ONE of the following : [ ]1) Acute kidney injury [ ]2) Severe electrolyte abnormality [ ]3) Cardiac dysrhythmia [ ]XXIII. Systemic conditions, including ANY ONE of the following: [ ]a) Severe electrolyte or metabolic disturbance causing or likely to cause ANY ONE of the following(10)(89)(90): [ ]i) Life-threatening cardiac dysrhythmia [ ]ii) Respiratory insufficiency [ ]iii) Altered mental status [ ]iv) Seizures [ ]v) Hemodynamic instability [ ]vi) Muscular weakness [ ]b) Environmental injuries such as hypothermia, hyperthermia, electrical injuries, or near drowning(70)(91)(92) The original [facility] content created by [employer] has been revised. The portions of the content which have been revised are identified through the use of italic text or in bold, and [facility] has neither reviewed nor approved the modified material. All other unmodified content is copyright [employer]. Please see references footnoted in the original [facility] [place] edition 2016 Admission Criteria Met: Yes
[2016-11-24] MEDS ORDERED: NACL 0.9% 500 ML IV SCH (19:00)
[2016-11-24] MEDS ORDERED: fentaNYL DRIP Premix 2,000 MCG/100 ML BAG IV SCH (19:00)
[2016-11-24] MEDS ORDERED: VANCOMYCIN/NS 1 GM/250 ML 1 GM/250 ML BAG IV ONE ×2 (19:15→20:12)
[2016-11-24 19:55] LABS: Hematocrit 25.8 % (30.3-42.9); Hemoglobin 7.8 gm/dl (10.1-14.3); Mean Corpuscular HGB Conc 30 % (30-34); Mean Corpuscular Hemoglobin 30 pg (28-32); Mean Corpuscular Volume 101 fl (79-97); Platelet Count 371 K/mm3 (140-440); Red Blood Count 2.56 M/mm3 (3.65-5.03); Red Cell Distribution Width 17.2 % (13.2-15.2); White Blood Count 13.7 K/mm3 (4.5-11.0)
[2016-11-24 20:03] LABS: INR 1.59 (0.87-1.13)
[2016-11-24] MEDS ORDERED: ZOSYN/NS 3.375GM/50ML 3.375 GM/50 ML BAG IV ONE (20:12)
[2016-11-24] MEDS ORDERED: NACL 0.9% 1000 ML 1,000 ML ONE (20:12)
[2016-11-24 20:13] LABS: Creatine Kinase MB 6.7 ng/mL (0.0-4.0)
[2016-11-24 20:14] LABS: Alanine Aminotransferase 119 units/L (7-56); Albumin 1.8 g/dL (3.9-5); Albumin/Globulin Ratio 0.6 %; Alkaline Phosphatase 141 units/L (35-129); Anion Gap 35 mmol/L; BUN/Creatinine Ratio 23.63; Bilirubin,Total < 0.20 mg/dL (0.1-1.2); Blood Urea Nitrogen 26 mg/dL (7-17); Calcium 9.7 mg/dL (8.4-10.2); Carbon Dioxide 15 mmol/L (22-30); Chloride 101.5 mmol/L (98-107); Creatine Kinase 218 units/L (30-135); Glucose 155 mg/dL (65-100); Sodium 146 mmol/L (137-145); Total Protein 4.6 g/dL (6.3-8.2)
[2016-11-24 20:20] LABS: Potassium 5.3 mmol/L (3.6-5.0)
[2016-11-24 20:27] LABS: ISTAT Base Excess -9; ISTAT PCO2 61.7 (35-45); ISTAT PH 7.119 (7.35-7.45); ISTAT PO2 60 (80-105); ISTAT SO2 80; ISTAT TCO2 22
[2016-11-24 20:40] LABS: Basophils % (Manual) 0 % (0.0-1.8); Blastocytes % (Manual) 0 %
[2016-11-24 20:41] LABS: Diff Status Complete; RBC Morphology Normal
[2016-11-24 20:54] LABS: Creatine Kinase MB 5.7 ng/mL (0.0-4.0)
--- NOTE | 2016-11-24 21:09 | XRay Report ---
FINAL REPORT EXAM: XR G-TUBE STUDY HISTORY: PEG tube placement TECHNIQUE: Supine views of the abdomen obtained prior to and following injection of a G-tube PRIORS: None. FINDINGS: Following injection, the contrast is noted completely within the stomach and duodenal bulb without evidence for extravasation. This implies satisfactory placement of the percutaneous gastric tube. IMPRESSION: Satisfactory position of a PEG tube. Contrast injected is completely noted within the stomach without extravasation.
[2016-11-24 21:15] LABS: Cholesterol 120 mg/dL (50-199); HDL Cholesterol 28 mg/dL (40-59); LDL Cholesterol,Direct 78 mg/dL (50-130); Triglycerides 70 mg/dL (2-149)
--- NOTE | 2016-11-24 21:57 | Event Note ---
Date: 11/24/16 See H/p in reports Cardiac Arrest- revived Hypoension Hypermtremia Hyperkalemia Acute renal failure
[2016-11-24] MEDS: ZOSYN/NS 3.375GM/50ML 3.375 GM/50 ML BAG IV SCH (22:01)
[2016-11-24] MEDS ORDERED: VANCOMYCIN PHARMACY TO DOSE IV SCH (23:00)
[2016-11-24] MEDS ORDERED: NACL ONE (23:21)
[2016-11-25] MEDS: ZOSYN/NS 3.375GM/50ML 3.375 GM/50 ML BAG IV SCH ×3 (00:19→13:20)
[2016-11-25] MEDS ORDERED: NACL 0.45% 1000 ML 1,000 ML IV SCH (01:00)
[2016-11-25 01:44] LABS: Creatine Kinase MB 15.5 ng/mL (0.0-4.0)
[2016-11-25] MEDS: LEVOPHED DRIP 4 MG/NS 250 ML 4 MG/250 ML BAG IV SCH (01:51)
[2016-11-25 04:57] LABS: ISTAT Base Excess -4; ISTAT HCO3 22.3; ISTAT PCO2 42.6 (35-45); ISTAT PH 7.326 (7.35-7.45); ISTAT PO2 117 (80-105); ISTAT SO2 98; ISTAT TCO2 24
[2016-11-25] MEDS ORDERED: NACL ONE (05:57)
[2016-11-25] MEDS ORDERED: VANCOMYCIN/NS 1 GM/250 ML 1 GM/250 ML BAG IV SCH (06:00)
--- NOTE | 2016-11-25 06:53 | History and Physical Report ---
CHIEF COMPLAINT: Cardiac arrest. HISTORY OF PRESENT ILLNESS: A 76-year-old female with multiple medical problems, including seizure disorder, hypertension, gastroesophageal reflux disease, irritable bowel syndrome, COPD, brought in by EMS for cardiac arrest. The patient was brought in from [facility]. The patient was seen last normal at 1725 hours. Upon EMS arrival, the patient was asystole and in pulseless electrical activity. The return of spontaneous circulation was achieved. In the [facility], the patient was given 2 rounds of epinephrine and ____ tube was placed prior to hospital arrival. Upon arriving to the Emergency Department, the patient had no pulse ____. Two more rounds of epinephrine was given, 1 amp of bicarbonate was given, 1 calcium gluconate was given and return of circulation was achieved. The patient is intubated. PAST MEDICAL HISTORY: Significant for cancer and uncertain what type of cancer it is, COPD, oral candidiasis, hyperlipidemia, hypertension, irritable bowel syndrome, gastroesophageal reflux disease, seizure disorder. PAST SURGICAL HISTORY: Unknown. SOCIAL HISTORY: Does not smoke apparently. FAMILY HISTORY: Unknown. CURRENT MEDICATIONS: Albuterol sulfate, Ventolin puffs 2 puffs q. 6 hours p.r.n., Mycelex 10 mg 3 times a day, Bentyl 10 mg p.o. b.i.d., Colace 100 mg twice a day, multivitamin tablets 1 tablet daily, omega-3 fatty acids 500 mg p.o. daily, Chloraseptic spray p.r.n., ranitidine 150 mg twice a day, simethicone 80 mg twice a day, amlodipine 5 mg p.o. daily, azelastine 2 sprays q. 12 hours, ____, [place] 10/325 q. 6 hours p.r.n., Afrin 2 sprays t.i.d., Robitussin 10 mL p.o. q.6h.p.r.n., ____ Keppra 5000 mg p.o. at bedtime. REVIEW OF SYSTEMS: Could not be done. The patient basically in cardiac arrest. A 14-point review of systems could not be done. PHYSICAL EXAMINATION: GENERAL: Elderly female, intubated, pupils reactive. VITAL SIGNS: Temperature 98, respirations 16 on CMV, blood pressure 73/36, which is improved to 125/93 over the course of her stay in the ER and eventually settled down at 87/53. HEENT: Oral candidiasis present. NECK: Supple. No lymphadenopathy. No thyromegaly. LUNGS: Clear to auscultation and percussion. Good air entry. CARDIOVASCULAR SYSTEM: S1, S2 heard. No gallop, no murmur, no rub. Apical impulse in left fifth intercostal space. Fast heart rate. ABDOMEN: Soft and benign. No hepatosplenomegaly. No guarding, no rigidity. Hernial orifices are normal. EXTREMITIES: Moderate pedal pulses. CENTRAL NERVOUS SYSTEM: Unresponsive. The patient intubated. SKIN: Normal. LABORATORY DATA: Significant for white count of 13,500; H and H is 7.8 and 25.8; platelet count is 371,000. Sodium is 146, potassium is 5.3, chloride is 101.5, bicarbonate is 15, BUN and creatinine is 26 and 1.1, glucose is 155. ASSESSMENT AND PLAN: 1. Cardiac arrest. The patient intubated and revived. The patient was given normal epinephrine and sodium bicarbonate and calcium gluconate. IV fluids for now. 2. Hypotension. The patient on Levophed IV drip. 3. Sepsis possibility. Broad-spectrum antibiotics with IV Zosyn and IV vancomycin. 4. Acute renal failure. IV fluids for now. 5. Gastroesophageal reflux disease. Ranitidine 150 mg p.o. b.i.d. ____ b.i.d. 6. Seizure disorder. Continue Keppra 750 q.12h. via NG tube. 7. Deep venous thrombosis prophylaxis. Lovenox 40 mg subcutaneous daily. 8. Hyperkalemia, mild, should correct with IV fluids. 9. Hyponatremia, should correct with IV half normal saline. JOB# [id number] VSM/NTS
--- NOTE | 2016-11-25 07:08 | XRay Report ---
Single view chest: Compared to 11/24/16. History: Status post line placement. Findings: Borderline cardiomegaly. Trachea is midline. Tip of endotracheal tube and tip of right central line in normal position. The tip of central line is at the upper superior vena cava. No consolidation. No pneumothorax. Suspected minimal left pleural effusion or infiltrate. Impression: Tip of right central line upper superior vena cava. Additional findings as detailed above
--- NOTE | 2016-11-25 07:19 | XRay Report ---
Single view chest: History: Chest pain. Findings: One cardiomegaly. Trachea is midline. Tip of endotracheal tube in normal position. Ill-defined airspace opacity left lower lobe. Normal CP angles. Impression: Probable left lower lobe pneumonia/effusion. No significant interval change.
--- NOTE | 2016-11-25 07:20 | Cat Scan Report ---
FINAL REPORT EXAM: CT ANGIO CHEST HISTORY: sob s/p cardiac arrest TECHNIQUE: CT angiography of the chest was performed. 100 cc Omnipaque 350 IV was administered. Coronal and sagittal reformatted images were obtained. Coronal MIPS reformatted images also obtained. PRIORS: None. FINDINGS: There are atherosclerotic calcifications involving the thoracic aorta. There is no aortic dissection seen. There are no filling defects seen within the pulmonary arterial circulation to suggest pulmonary embolism. The patient is intubated. There is a moderate-sized right pneumothorax estimated at 30 percent. Small left pleural effusion is partially loculated. There is some consolidation of both lung bases which is likely atelectasis although superimposed infiltrate in the left lower lobe not excluded. There are emphysematous changes in the lungs. There is a tiny amount of free intraperitoneal air in the upper abdomen. In the visualized upper abdomen, mass is seen in the inferior right hepatic lobe measuring about 3.7 cm diameter. This is concerning for malignancy/metastatic disease. There are multiple acute anterior rib fractures bilaterally which likely relate to chest compressions. There is a lesion involving posterior 11th rib which could represent metastatic lesion. IMPRESSION: There is no pulmonary embolism or aortic dissection seen. Moderate right pneumothorax estimated at 30 percent. There is also a tiny amount of free air seen in the upper abdomen. This could relate to the pneumothorax and chest compressions. Perforated abdominal viscus cannot be excluded. Multiple bilateral anterior rib fractures, some displaced. Moderate emphysema. Small partially loculated left pleural effusion. There is bilateral posterior lower lobe consolidation, likely atelectasis although superimposed infiltrate, especially in left lower lobe not excluded. Mass in the right hepatic lobe seen which could be moved malignant/metastatic disease. There also lesion involving posterior lower rib on the left, likely the 11th rib. This could represent a bony metastatic lesion.
--- NOTE | 2016-11-25 07:46 | Cat Scan Report ---
FINAL REPORT EXAM: CT HEAD/BRAIN WO CON HISTORY: cardiac arrest, altered MS TECHNIQUE: CT of the head was performed. No intravenous contrast was administered. PRIORS: None. FINDINGS: Examination is limited by motion artifact. There is a calcified lesion in the left frontal parietal area of unknown etiology and significance. There is no edema or mass effect seen. Note that there is hyperdensity in the nasopharynx and in the sinuses suggestive of contrast material. Correlate clinically. There is no evidence of intracranial hemorrhage. There is no edema, mass effect or midline shift. There are no abnormal extra-axial fluid collections. The ventricles are appropriate for brain volume. There is no skull fracture seen. The visualized aspects of the sinuses are clear. IMPRESSION: Calcification/calcified lesion in left frontoparietal region of uncertain significance in etiology. There is no associated mass effect or edema. This is nonspecific but could be a chronic finding. Compare with previous if available. Hyperdensity in nasopharynx, nasal cavity and sinuses suggestive of contrast material. Correlate clinically.
--- NOTE | 2016-11-25 10:35 | Progress Note ---
Assessment and Plan Assessment and plan: -Status post cardiac arrest -Acute respiratory failure, intubated -History of lung cancer with metastases to brain and possibly bone -Pneumothorax -Shock, multifactorial -Multisystem organ failure. -Suspected severe malnutrition, status post PEG tube on 11/19/2016 -Acute metabolic encephalopathy due to above. DO NOT RESUSCITATE, paperwork signed Withdrawal care per son, paperwork signed Hospice if patient survived withdrawal from mechanical ventilator Critically ill Poor prognosis, expected expiration The high probability of a clinically significant, sudden or life threatening deterioration of the [neurologic,cardiac] system(s) required my full and direct attention, intervention and personal management. The aggregate critical care time was [ 40 ] minutes. This time is in addition to time spent performing reported procedures but includes the following: [x] Data Review and interpretation [x] Patient assessment and monitoring of vital signs [x] Documentation [x] Medication orders and management History Interval history: Patient was seen and examined. She is intubated and not responsive. Spoke with her son at bedside states he is the power of erisa attorney has paperwork. He wants to withdraw care. Hospitalist Physical - Physical exam Narrative exam: GEN: Severely cachectic, Critically ill, comatose, intubated, on fentanyl drip, Levophed drip HEENT: ET tube in place, pupils are dilated even on a fentanyl drip which should make her pupils pinpoint CVS: RRR, NORMAL S1S2 LUNGS/CHEST: diminish AIR ENTRY RIGHT GREATER THAN LEFT ABD: SOFT, positive bowel sounds NEURO: Intubated with endotracheal tube - Constitutional Vitals: Temp Pulse Resp BP Pulse Ox 98 H 19 57/25 100 11/25/16 09:45 11/25/16 09:45 11/25/16 09:45 11/25/16 09:45 Results - Labs CBC & Chem 7: 11/24/16 19:39 11/24/16 19:39 Labs: Laboratory Last Values WBC 13.7 K/mm3 (4.5-11.0) H 11/24/16 19:39 RBC 2.56 M/mm3 (3.65-5.03) L 11/24/16 19:39 Hgb 7.8 gm/dl (10.1-14.3) L 11/24/16 19:39 Hct 25.8 % (30.3-42.9) L 11/24/16 19:39 MCV 101 fl (79-97) H 11/24/16 19:39 MCH 30 pg (28-32) 11/24/16 19:39 MCHC 30 % (30-34) 11/24/16 19:39 RDW 17.2 % (13.2-15.2) H 11/24/16 19:39 Plt Count 371 K/mm3 (140-440) 11/24/16 19:39 Add Manual Diff Complete 11/24/16 19:39 Total Counted 100 11/24/16 19:39 Seg Neuts % (Manual) 72.0 % (40.0-70.0) H 11/24/16 19:39 Band Neutrophils % 3.0 % 11/24/16 19:39 Lymphocytes % (Manual) 13.0 % (13.4-35.0) L 11/24/16 19:39 Reactive Lymphs % (Man) 0 % 11/24/16 19:39 Monocytes % (Manual) 5.0 % (0.0-7.3) 11/24/16 19:39 Eosinophils % (Manual) 2.0 % (0.0-4.3) 11/24/16 19:39 Basophils % (Manual) 0 % (0.0-1.8) 11/24/16 19:39 Metamyelocytes % 3.0 % 11/24/16 19:39 Myelocytes % 2.0 % 11/24/16 19:39 Promyelocytes % 0 % 11/24/16 19:39 Blast Cells % 0 % 11/24/16 19:39 Nucleated RBC % Not Reportable 11/24/16 19:39 Seg Neutrophils # Man 9.9 K/mm3 (1.8-7.7) H 11/24/16 19:39 Band Neutrophils # 0.4 K/mm3 11/24/16 19:39 Lymphocytes # (Manual) 1.8 K/mm3 (1.2-5.4) 11/24/16 19:39 Abs React Lymphs (Man) 0.0 K/mm3 11/24/16 19:39 Monocytes # (Manual) 0.7 K/mm3 (0.0-0.8) 11/24/16 19:39 Eosinophils # (Manual) 0.3 K/mm3 (0.0-0.4) 11/24/16 19:39 Basophils # (Manual) 0.0 K/mm3 (0.0-0.1) 11/24/16 19:39 Metamyelocytes # 0.4 K/mm3 11/24/16 19:39 Myelocytes # 0.3 K/mm3 11/24/16 19:39 Promyelocytes # 0.0 K/mm3 11/24/16 19:39 Blast Cells # 0.0 K/mm3 11/24/16 19:39 WBC Morphology Not Reportable 11/24/16 19:39 Hypersegmented Neuts Not Reportable 11/24/16 19:39 Hyposegmented Neuts Not Reportable 11/24/16 19:39 Hypogranular Neuts Not Reportable 11/24/16 19:39 Smudge Cells Not Reportable 11/24/16 19:39 Toxic Granulation Not Reportable 11/24/16 19:39 Toxic Vacuolation Not Reportable 11/24/16 19:39 Dohle Bodies Not Reportable 11/24/16 19:39 Pelger-Huet Anomaly Not Reportable 11/24/16 19:39 Ashley Rods Not Reportable 11/24/16 19:39 Platelet Estimate Appears normal 11/24/16 19:39 Clumped Platelets Not Reportable 11/24/16 19:39 Plt Clumps, EDTA Not Reportable 11/24/16 19:39 Large Platelets Not Reportable 11/24/16 19:39 Giant Platelets Not Reportable 11/24/16 19:39 Platelet Satelliting Not Reportable 11/24/16 19:39 Plt Morphology Comment Not Reportable 11/24/16 19:39 RBC Morphology Normal 11/24/16 19:39 Dimorphic RBCs Not Reportable 11/24/16 19:39 Polychromasia Not Reportable 11/24/16 19:39 Hypochromasia Not Reportable 11/24/16 19:39 Poikilocytosis Not Reportable 11/24/16 19:39 Anisocytosis Not Reportable 11/24/16 19:39 Microcytosis Not Reportable 11/24/16 19:39 Macrocytosis Not Reportable 11/24/16 19:39 Spherocytes Not Reportable 11/24/16 19:39 Pappenheimer Bodies Not Reportable 11/24/16 19:39 Sickle Cells Not Reportable 11/24/16 19:39 Target Cells Not Reportable 11/24/16 19:39 Tear Drop Cells Not Reportable 11/24/16 19:39 Ovalocytes Not Reportable 11/24/16 19:39 Helmet Cells Not Reportable 11/24/16 19:39 [place] Bodies Not Reportable 11/24/16 19:39 [place] Rings Not Reportable 11/24/16 19:39 [place] Cells Not Reportable 11/24/16 19:39 Bite Cells Not Reportable 11/24/16 19:39 Crenated Cell Not Reportable 11/24/16 19:39 Elliptocytes Not Reportable 11/24/16 19:39 Acanthocytes (Spur) Not Reportable 11/24/16 19:39 Rouleaux Not Reportable 11/24/16 19:39 Hemoglobin C Crystals Not Reportable 11/24/16 19:39 Schistocytes Not Reportable 11/24/16 19:39 Malaria parasites Not Reportable 11/24/16 19:39 Nirav Bodies Not Reportable 11/24/16 19:39 Hem Pathologist Commnt No 11/24/16 19:39 PT 18.9 Sec. (12.2-14.9) H 11/24/16 19:39 INR 1.59 (0.87-1.13) H 11/24/16 19:39 APTT 51.0 Sec. (24.2-36.6) H 11/24/16 19:39 POC ABG pH 7.326 (7.35-7.45) L 11/25/16 04:45 POC ABG pCO2 42.6 (35-45) 11/25/16 04:45 POC ABG pO2 117 (80-105) H 11/25/16 04:45 POC ABG HCO3 22.3 11/25/16 04:45 POC ABG Total CO2 24 11/25/16 04:45 POC ABG O2 Sat 98 11/25/16 04:45 POC ABG Base Excess -4 11/25/16 04:45 FiO2 90 % 11/25/16 04:45 Sodium 146 mmol/L (137-145) H 11/24/16 19:39 Potassium 5.3 mmol/L (3.6-5.0) H D 11/24/16 19:39 Chloride 101.5 mmol/L (98-107) 11/24/16 19:39 Carbon Dioxide 15 mmol/L (22-30) L 11/24/16 19:39 Anion Gap 35 mmol/L 11/24/16 19:39 BUN 26 mg/dL (7-17) H 11/24/16 19:39 Creatinine 1.1 mg/dL (0.7-1.2) D 11/24/16 19:39 Estimated GFR 58 ml/min 11/24/16 19:39 BUN/Creatinine Ratio 23.63 % 11/24/16 19:39 Glucose 155 mg/dL (65-100) H 11/24/16 19:39 Lactic Acid 10.80 mmol/L (0.7-2.0) H* 11/24/16 22:10 Calcium 9.7 mg/dL (8.4-10.2) 11/24/16 19:39 Total Bilirubin < 0.20 mg/dL (0.1-1.2) 11/24/16 19:39 AST 402 units/L (5-40) H 11/24/16 19:39 ALT 119 units/L (7-56) H 11/24/16 19:39 Alkaline Phosphatase 141 units/L (35-129) H 11/24/16 19:39 Total Creatine Kinase 438 units/L (30-135) H 11/25/16 00:51 CK-MB (CK-2) 15.5 ng/mL (0.0-4.0) H 11/25/16 00:51 CK-MB (CK-2) Rel Index 3.5 (0-4) 11/25/16 00:51 Troponin T 0.350 ng/mL (0.00-0.029) H* D 11/25/16 00:51 Total Protein 4.6 g/dL (6.3-8.2) L 11/24/16 19:39 Albumin 1.8 g/dL (3.9-5) L 11/24/16 19:39 Albumin/Globulin Ratio 0.6 % 11/24/16 19:39 Triglycerides 70 mg/dL (2-149) 11/24/16 19:39 Cholesterol 120 mg/dL (50-199) 11/24/16 19:39 LDL Cholesterol Direct 78 mg/dL (50-130) 11/24/16 19:39 HDL Cholesterol 28 mg/dL (40-59) L 11/24/16 19:39 Cholesterol/HDL Ratio 4.28 % 11/24/16 19:39 Blood Type O POSITIVE 11/24/16 22:10 Antibody Screen TNR 11/24/16 22:10 ANAM Antibody Screen Negative 11/24/16 22:10
[2016-11-25 11:10] VITALS: BP 45/13
--- NOTE | 2016-11-25 11:23 | Death Summary ---
Summary - Providers Date of service: 11/25/16 Consults: 11/24/16 20:57 Consult to Physician [CONS] Urgent Consulting Provider: VALERIO DAN Reason For Exam: icu admission Place consult to:: Dr. Dan Notified:: Answering Service Phone number called:: [phone] Was contact made?: Yes If yes, spoke with:: Dr. Dan Time called:: 21:01 11/24/16 22:03 Consult to Dietitian/Nutrition [CONS] Routine Physician Instructions: Reason For Exam: Reason for Consult: Nutrition Recommendations Reason for Consult: Write/Manage Tube Feeding Attending: CAREN MOSCOSO - summary Date of admission: 11/24/16 18:40 Date of : 11/25/16 Significant findings: Patient prior to withdrawal. Asystole, pupils fixed and dilated, no heart tones, no breath sounds, no gag. Time of 11:00am Cause of : Lung cancer - Final diagnosis (1) Lung cancer Qualifiers: Laterality: unspecified laterality Lung location: unspecified part of lung Qualified Code(s): C34.90 - Malignant neoplasm of unspecified part of unspecified bronchus or lung Note: Final diagnosis:
== END 2016-11-25 11:00 | DRG 208 ==
LOC: ED 17:56 → CC1 18:40
PROVIDERS: ADMIT Internal Medicine; ATTEND Internal Medicine
PROC: 5A1935Z Respiratory Ventilation, Less than 24 Consecutive Hours (ICD-10-PCS; principal; 2016-11-24)
PROC: 02HV33Z Insertion of Infusion Device into Superior Vena Cava, Percutaneous Approach (ICD-10-PCS; 2016-11-24)
PROC: 5A12012 Performance of Cardiac Output, Single, Manual (ICD-10-PCS; 2016-11-24)
PROC: 0DH63UZ Insertion of Feeding Device into Stomach, Percutaneous Approach (ICD-10-PCS; 2016-11-24)
PROC: 0BH17EZ Insertion of Endotracheal Airway into Trachea, Via Natural or Artificial Opening (ICD-10-PCS; 2016-11-24)
DX: J96.00 Acute respiratory failure, unspecified whether with hypoxia or hypercapnia (principal); I46.9 Cardiac arrest, cause unspecified; G93.41 Metabolic encephalopathy; C34.90 Malignant neoplasm of unspecified part of unspecified bronchus or lung; E87.0 Hyperosmolality and hypernatremia; N17.9 Acute kidney failure, unspecified; C79.31 Secondary malignant neoplasm of brain; J93.9 Pneumothorax, unspecified; I95.9 Hypotension, unspecified; E87.5 Hyperkalemia; J44.9 Chronic obstructive pulmonary disease, unspecified; Z66 Do not resuscitate; Z88.5 Allergy status to narcotic agent; Z85.118 Personal history of other malignant neoplasm of bronchus and lung; Z88.6 Allergy status to analgesic agent; Z88.2 Allergy status to sulfonamides
CPT/HCPCS: 36415; 36600; 70450; 71010; 71275; 74000; 80053; 80061; 82140; 82550; 82553; 82803; 84484; 85007; 85025; 85610; 85730; 86850; 86900; 86901; 87040; 93005; 93010; 94002; 94003; 96361; 96365; 99291; J0171; J2543; J3010; J3370; J7030; Q9963; Q9967